=== PATIENT | female | born 1975 | race Caucasian/White ===

== ENCOUNTER 2017-09-28 08:51 | Emergency (ER) | payer MEDICAID ==
[~2017-09-28] VITALS: Ht 172.7 cm; Wt 77.7 kg
[2017-09-28 09:37] LABS: HCG UR SG 1.036 (1.003-1.030)
[2017-09-28 09:47] LABS: MICROSCOPIC INDICATED
[2017-09-28 09:50] LABS: CULTURE INDICATED? NO
[2017-09-28 12:00] VITALS: BP 106/71
== END 2017-09-28 12:18 | disposition home or self-care (01) ==
LOC: ED 09:56
DX: N23 Unspecified renal colic (principal); F17.200 Nicotine dependence, unspecified, uncomplicated
CPT/HCPCS: 74176; 81001; 81025; 99285